=== PATIENT | male | born 1965 | race Caucasian/White ===

== ENCOUNTER 2020-04-25 08:26 | Day surgery (SDC) | payer OTHER ==
[2020-04-24 08:23] VITALS: BMI 31.8
[~2020-04-25 08:26] MED LIST: LACTATED RINGERS 1,000 ML IV SCH
[2020-04-25] MEDS ORDERED: LIDOCAINE 1% (10MG/ML) FOR IV START INTRADERMA ONE (08:56)
[2020-04-25 09:00] VITALS: RESP 16; TEMP 97.8
[2020-04-25 09:04] LABS: Glucose,Whole Blood 179 mg/dL (75-99)
[2020-04-25] MEDS ORDERED: PROPOFOL 10 MG/ML 20 ML VIAL IV ONE (09:39)
--- NOTE | 2020-04-25 09:42 | P.GSHP ---
History of Present Illness H&P Date: 04/25/20 Chief Complaint: Screening colonoscopy This 52-year-old male presents for screening colonoscopy. Patient denies a significant GI complaints. Past Medical History Past Medical History: Diabetes Mellitus, Hyperlipidemia History of Any Multi-Drug Resistant Organisms: None Reported Past Surgical History: Orthopedic Surgery Additional Past Surgical History / Comment(s): COLONOSCOPY. RT LITTLE FINGER SX FOR REPAIR OF LIGAMENT Past Anesthesia/Blood Transfusion Reactions: No Reported Reaction Smoking Status: Never smoker - Past Family History Mother Family Medical History: No Reported History Medications and Allergies Home Medications Medication Instructions Recorded Confirmed Type Atorvastatin [Lipitor] 20 mg PO DAILY 04/24/20 04/25/20 History Metoprolol Succinate [Toprol XL] 100 mg PO DAILY 04/24/20 04/25/20 History metFORMIN HCL 1,000 mg PO BID 04/24/20 04/25/20 History Allergies Allergy/AdvReac Type Severity Reaction Status Date / Time theophylline [From Mike-Dur] Allergy Anaphylaxis Verified 04/25/20 08:40 Surgical - Exam Vital Signs Temp Pulse Resp BP Pulse Ox 97.8 F 76 16 163/88 95 04/25/20 08:49 04/25/20 08:49 04/25/20 08:49 04/25/20 08:49 04/25/20 08:49 - General well developed, well nourished, no distress - Eyes PERRL - ENT normal pinna - Neck no masses - Respiratory normal expansion - Cardiovascular Rhythm: regular - Abdomen Abdomen: soft, non tender Results - Labs Abnormal Lab Results - Last 24 Hours (Table) 04/25/20 Range/Units 08:59 POC Glucose (mg/dL) 179 H (75-99) mg/dL Assessment and Plan Assessment: We'll perform screening colonoscopy
--- NOTE | 2020-04-25 09:50 | P.OP ---
Date of Procedure: 04/25/20 Preoperative Diagnosis: Screen colonoscopy Postoperative Diagnosis: Diverticulosis: Procedure(s) Performed: Colonoscopy Anesthesia: MAC Surgeon: Hieu Patel Pathology: none sent Condition: stable Disposition: PACU Description of Procedure: Patient's placed on the endoscopy table in the lateral position. He received IV sedation. Digital rectal exam was performed which revealed no malleus. The flexible colonoscope was then placed patient anus and passed throughout the entire colon. The ileocecal valve was visualized. The cecum, ascending, transverse colon appeared normal. In the descending colon was mild diverticular changes. The scope was then brought back the rectum and this appeared normal. Scope was withdrawn for patient.
[2020-04-25 10:06] VITALS: BP 150/76; PULSE 71
== END 2020-04-25 10:30 | disposition home or self-care (01) ==
LOC: ORWHC2ENDO 08:26
PROVIDERS: ATTEND Surgery
DX: Z12.11 Encounter for screening for malignant neoplasm of colon (principal); K57.30 Diverticulosis of large intestine without perforation or abscess without bleeding; E11.9 Type 2 diabetes mellitus without complications; E78.5 Hyperlipidemia, unspecified; Z98.890 Other specified postprocedural states; Z87.39 Personal history of other diseases of the musculoskeletal system and connective tissue; Z79.899 Other long term (current) drug therapy; Z79.84 Long term (current) use of oral hypoglycemic drugs; Z88.8 Allergy status to other drugs, medicaments and biological substances
CPT/HCPCS: J2704; G0121

== ENCOUNTER → 2021-01-16 | Outpatient (CLI) | payer OTHER ==
--- NOTE | 2021-01-16 10:56 | NM ---
EXAMINATION TYPE: NM stress cardiolite complete DATE OF EXAM: 01/16/2021 COMPARISON: NONE HISTORY: Angina pectoris TECHNIQUE: After the intravenous administration of 9.7 mCi Tc 99m Sestamibi - Rest images obtained 4 5 minutes post injection. The patient exercised using a KIRSTIE protocol and 1 minute prior to peak e xercise was injected with 25.5 mCi Tc 99m Sestamibi - Stress images obtained 15 minutes post injectio n. FINDINGS: Targeted heart rate was achieved during performance of the study. Review of stress and rest SPECT clay ges demonstrates no distinct perfusion abnormality. Gated analysis shows normal wall motion with an estimated left ventricular ejection fraction of 59 %. IMPRESSION: No scintigraphic evidence for reversible ischemia
--- NOTE | 2021-01-16 12:50 | EST ---
EXERCISE STRESS AGE: 55 SEX: Male HT: 6 ft. WT: 260 lbs. PROTOCOL: Cardiolite STAGE: 3 DURATION OF EXERCISE: 8 minutes HEART RATE REST: 83 BLOOD PRESSURE REST: 163/98 MAXIMUM HEART RATE ACHIEVED: 151 MAXIMUM BLOOD PRESSURE: 214/52 85% MPHR: 142 100% MPHR: 167 METS: 9 INDICATIONS: Chest pain. CLINICAL INFORMATION: Baseline EKG shows sinus rhythm, normal axis, normal intervals. Patient exercised on Fito protocol for a total of 8 minutes achieving 9 METs, 90% of predicted maximal heart rate without chest pain. At peak exercise, the patient was short of breath and there was 0.[address]-segment depression noted. CONCLUSIONS: 1. Good exercise tolerance. 2. Nondiagnostic EKG changes of exercise. 3. Cardiolite portion of the stress test will be reported separately. MMODL / IJN: [id number] /
== END | disposition home or self-care (01) ==
LOC: RADNMMAIN 08:00
PROVIDERS: ATTEND Family Medicine
DX: R07.9 Chest pain, unspecified (principal)
CPT/HCPCS: 93017; 78452; A9500

== ENCOUNTER → 2022-08-06 | Outpatient (CLI) | payer OTHER ==
--- NOTE | 2022-08-06 14:27 | P.SLEEP ---
History of Present Illness DATE: 08/06/2022 CONSULTATION/NEW PATIENT EVALUATION HISTORY OF PRESENT ILLNESS/SLEEP-WAKE EVALUATION: 57year old gentleman had been evaluated in the sleep center for possible obstructive sleep apnea hypopnea syndrome. Patient recently had a home sleep apnea test which was done by [facility] and showed severe obstructive sleep apnea hypopnea syndrome with apnea- hypopnea index more than 60 and oxygen desaturation to 50%. SLEEP SCHEDULE: Usually sleep schedule on weekdays from 9:30 PM to 5 AM, during days off from 9:30 PM to 5 AM. FALLING ASLEEP: No problems with falling asleep, no TV in bedroom. DURING SLEEP: According to patient no significant history of snoring. Patient wakes up from sleep once with nocturia. No history of hypnogogical hallucinations, sleep paralysis, or cataplexy. DURING THE DAY/WAKE STATE: During the day patient may feel some sleepiness. [place] sleepiness scale is significantly increased to 12. Patient takes nap at 1 PM. She drinks 6 caffeinated beverages during the day. PAST MEDICAL HISTORY: Hypertension, diabetes mellitus, hyperlipidemia. PAST SURGICAL HISTORY: None other than colonoscopy. MEDICATIONS: Metoprolol 100 mg once a day, atorvastatin 20 mg once a day, amlodipine once a day, metformin 1000 mg twice a day, aspirin 325 mg once a day. SOCIAL HISTORY: Negative for smoking, alcohol consumption occasional. FAMILY HISTORY: Hypertension, diabetes. REVIEW OF SYSTEMS: Sleepiness during the day. No fevers. No double vision. No recent chest pain. No shortness of breath. No abdominal pain. No bleeding episodes. No blood in urine. No seizure episodes. PHYSICAL EXAMINATION: GENERAL: A pleasant patient without any distress. VITAL SIGNS: BP 120/84 , HR 73 , RR 16 , weight 254.8 pounds, height 6 foot 0 inches, body mass index 34.4 . HEENT: PERRLA, EOMI. Evaluation of oropharynx showed tongue protrudes midline, low position of soft palate Mallampati 4. NECK: Supple. No JVD. Thyroid is not palpable. 18 inches in circumference. LUNGS: Clear to percussion and to auscultation. Good air exchange. No wheezing or rhonchi. HEART: S1, S2 regular. No murmurs, gallops or rubs. ABDOMEN: Soft and nontender. Bowel sounds are present. No organomegaly appreciated. EXTREMITIES: No clubbing or cyanosis. DOCTOR OF PODIATRIC MEDICINE: Awake, alert, and oriented x3. Cranial nerves 2 to 7 intact. There is no fasciculation or atrophy noted. No focal deficits observed. ASSESSMENT: 1. Excessive daytime sleepiness [place] sleepiness scale increased to 12, extremely low position of soft palate Mallampati 4, wide neck 18 inches in circumference. Results of home sleep apnea test which was done in another institution in June 2022 showed severe sleep apnea with severe oxygen desat uration. 2. Hypertension. 3 diabetes mellitus. 4. Obesity. 5 hyperlipidemia. PLAN: 1. CPAP if necessary BiPAP titration for correction of respiratory abnormalities during sleep. 2. No driving if patient feels any sleepiness. Patient is aware of civil and criminal liability for unsafe driving. 3. Preferable position during sleep on the side. 4. Watching and losing weight. 5. Sleep hygiene with regular sleep time for at least 7.5-8 hours. Thank you very much for referring this patient for consultation. Sincerely, Ismael Rueda MD, PhD, FAASM. Diplomat of [place] [employer], Sleep Medicine Board by [place] [employer] [employer] Forensic Investigator of [facility] [place] Past Medical History Past Medical History: Diabetes Mellitus, Hyperlipidemia History of Any Multi-Drug Resistant Organisms: None Reported Past Surgical History: Orthopedic Surgery Additional Past Surgical History / Comment(s): COLONOSCOPY. RT LITTLE FINGER SX FOR REPAIR OF LIGAMENT Past Anesthesia/Blood Transfusion Reactions: No Reported Reaction Smoking Status: Never smoker - Past Family History Mother Family Medical History: No Reported History Medications and Allergies Home Medications Medication Instructions Recorded Confirmed Type Atorvastatin [Lipitor] 20 mg PO DAILY 04/24/20 04/25/20 History Metoprolol Succinate [Toprol XL] 100 mg PO DAILY 04/24/20 04/25/20 History metFORMIN HCL [Glucophage] 1,000 mg PO BID 04/24/20 04/25/20 History Allergies Allergy/AdvReac Type Severity Reaction Status Date / Time theophylline [From [facility]] Allergy Anaphylaxis Verified 04/25/20 08:40 Sleep Note - Sleep Note Sleep Note: Temperature: Pulse Rate: Respiratory Rate: Blood Pressure: SpO2: Height: Weight: BMI: Neck Circumference:
== END ==
LOC: SLEEP 13:11
PROVIDERS: ATTEND Internal Medicine
DX: G47.33 Obstructive sleep apnea (adult) (pediatric) (principal); I10 Essential (primary) hypertension; E11.9 Type 2 diabetes mellitus without complications; E66.9 Obesity, unspecified; E78.5 Hyperlipidemia, unspecified; Z99.89 Dependence on other enabling machines and devices; Z79.899 Other long term (current) drug therapy; Z79.84 Long term (current) use of oral hypoglycemic drugs; Z79.82 Long term (current) use of aspirin; Z88.8 Allergy status to other drugs, medicaments and biological substances
CPT/HCPCS: 99211

== ENCOUNTER → 2023-04-29 | Outpatient (CLI) | payer OTHER ==
--- NOTE | 2023-04-29 15:59 | P.PN ---
Subjective DATE: 04/29/2023 FOLLOW UP VISIT. Patient with history of obstructive sleep apnea hypopnea syndrome return to sleep center for follow-up visit. Several months ago patient had PAP titration, which showed that optimal treatment for the patient will be BiPAP treatment. I explained to the patient results of sleep study in details. Patient needs to get BiPAP equipment and use it every night for the whole night . [place] sleepiness scale is increased to 13, which indicates sleepiness.. MEDICATIONS:1. Metoprolol 100 mg once a day 2. Metformin 1000 mg twice a day 3. Atorvastatin 20 mg once a day During physical exam: GENERAL: A pleasant patient without any distress. VITAL SIGNS: BP 134/78, HR 69, RR 18 , weight 254.8, temperature 98.5, oxygen saturation at room air 96% . HEENT: PERRLA, EOMI. NECK: Supple. No JVD. LUNGS: Clear to percussion and to auscultation. Good air exchange. No wheezing or rhonchi. HEART: S1, S2 regular. ABDOMEN: Soft and nontender. EXTREMITIES: No clubbing or cyanosis. BRUSHER: Awake, alert, and oriented x3. No focal deficit. Impressions: 1. Severe obstructive sleep apnea hypopnea syndrome on control with BiPAP treatment by results of recent titration test. 2. Hypertension. 3. Obesity. 4. Diabetes mellitus. 5. Hyperlipidemia. Plan: 1. Patient will get BiPAP unit and should use equipment every night for the whole night. 2. Sleep hygiene with regular time in bed for at least 8 hours. 3. Losing weight 4. Precautions related to driving. No driving if feel any sleepiness. Patient is aware about civil and criminal liability for unsafe driving, promised to follow recommendations. 5. Follow up visit in 1-2 months or earlier if patient has any problems. Thank you very much for allowing me to participate in the management of your patient. Ismael Rueda MD, PhD, FAASM. Diplomat of [place] [employer], Sleep Medicine Board by [employer] [employer] Mechanical Cad Drafter of [facility] [place]
== END ==
LOC: 3 N SLEEP 13:07
PROVIDERS: ATTEND Internal Medicine
DX: G47.33 Obstructive sleep apnea (adult) (pediatric) (principal); I10 Essential (primary) hypertension; E66.9 Obesity, unspecified; E11.9 Type 2 diabetes mellitus without complications; E78.5 Hyperlipidemia, unspecified; Z79.84 Long term (current) use of oral hypoglycemic drugs; Z79.899 Other long term (current) drug therapy; Z99.89 Dependence on other enabling machines and devices; Z88.8 Allergy status to other drugs, medicaments and biological substances
CPT/HCPCS: 99212

== ENCOUNTER → 2023-08-24 | Outpatient (CLI) | payer OTHER | END | disposition home or self-care (01) | LOC: LABWHC1 09:14 | PROVIDERS: ATTEND Family Medicine | DX: N53.9 Unspecified male sexual dysfunction (principal); R53.83 Other fatigue | CPT/HCPCS: 36415; 82533; 82626; 83525; 84140 ==